=== PATIENT | female | born 1990 | race Caucasian/White ===

== ENCOUNTER 2018-12-01 14:26 | Emergency (ER) | payer OTHER ==
[2018-12-01 15:01] VITALS: BP 133/89
--- NOTE | 2018-12-01 15:17 | UC ---
Throat Pain/Nasal [place] HPI - HPI Summary HPI Summary: 28 yo female presents with sore throat. She tells me that yesterday she noticed a sore throat with swollen tonsils. Today her sore throat is worse, tonsils enlarged, and fever of 101F. She took ibuprofen around 0800 this morning with little relief. She is able to drink, but cannot eat due to pain and tonsil enlargement. She is not drooling. Denies sinus symptoms, cough, rash, abdominal pain, n/v - History of Current Complaint Chief Complaint: UCRespiratory Stated Complaint: SORE THROAT Time Seen by Provider: 12/01/18 15:17 Hx Obtained From: Patient Hx Last Menstrual Period: IUD Onset/Duration: Sudden Onset Severity: Moderate Pain Intensity: 8 Pain Scale Used: 0-10 Numeric - Allergies/Home Medications Allergies/Adverse Reactions: Allergies Allergy/AdvReac Type Severity Reaction Status Date / Time amoxicillin Allergy Hives Verified 12/01/18 17:13 ampicillin Allergy Hives Verified 12/01/18 17:13 bee venom protein (honey bee) Allergy Swelling Verified 12/01/18 17:13 Of Face,Lips,& Throat Penicillins Allergy Swelling Verified 12/01/18 17:13 Of Face,Lips,& Throat soy Allergy Hives Verified 12/01/18 17:13 Home Medications: Home Medications Ibuprofen TAB* [Motrin TAB* 600 MG] 1,200 mg PO Q6H PRN 12/01/18 [History Confirmed 12/01/18] PMH/Surg Hx/FS Hx/Imm Hx - Additional Past Medical History Additional PMH: None - Surgical History Surgical History: None - Family History Known Family History: Positive: None - Social History Lives: With Family Alcohol Use: None Substance Use Type: None Smoking Status (MU): Never Smoked Tobacco Have You Smoked in the Last Year: No - Immunization History Most Recent Influenza Vaccination: 2016 Most Recent Tetanus Shot: 02/14/12 Most Recent Pneumonia Vaccination: never Review of Systems All Other Systems Reviewed And Are Negative: No Constitutional: Positive: Fever Skin: Positive: Negative Eyes: Positive: Negative ENT: Positive: Sore Throat Respiratory: Positive: Negative Cardiovascular: Positive: Negative Gastrointestinal: Positive: Negative Neurovascular: Positive: Negative Neurological: Positive: Negative Psychological: Positive: Negative Physical Exam - Summary Physical Exam Summary: GENERAL: NAD. SKIN: No rashes, sores, lesions, or open wounds. HEENT: Head: AT/NC Eyes: Conjunctiva clear without inflammation or discharge. Ears: Hearing grossly normal. TMs intact, no bulging, erythema, or edema. Nose: Nasal mucosa pink and moist. NTTP maxillary and frontal sinus. Throat: Posterior oropharynx moderate erythema and 4+ tonsillar enlargement. Moderate white/yellow exudates. Uvula midline, but soft palate with mild edema. Moderately muffled voice. NECK: Supple. TTP tonsillar b/l LAD CHEST: CTAB. No r/r/w. No accessory muscle use. Breathing comfortably and in no distress. CV: RRR.. Pulses intact. Cap refill <2seconds NEURO: Alert. PSYCH: Age appropriate behavior. Triage Information Reviewed: Yes Vital Signs: Initial Vital Signs Temp 101.3 F 12/01/18 14:58 Pulse 118 12/01/18 14:58 Resp 16 12/01/18 14:58 BP 133/89 12/01/18 14:58 Pulse Ox 99 12/01/18 14:58 Laboratory Tests 12/01/18 15:21 Group A Strep Rapid Positive A Vital Signs Reviewed: Yes Throat Pain/Nasal Course/Dx - Course Course Of Treatment: POC strep positive. Given her degree of tonsilar edema with possibility of peritonsilar abscess - I recommended pt go to the ED. She was agreeable to this, but declined ambulance transfer. She was given toradol 60mg IM in the clinic for her discomfort and fever. - Differential Dx/Diagnosis Provider Diagnosis: Tonsillitis, Strep throat Discharge ED - Sign-Out/Discharge Documenting (check all that apply): Patient Departure All imaging exams completed and their final reports reviewed: No Studies - Discharge Plan Condition: Stable Disposition: HOME-RECOMMEND TO ED Referrals: No Primary Care Phys,NOPCP [Primary Care Provider] - Additional Instructions: Please go to the ER for further evaluation of your sore throat. - Billing Disposition and Condition Condition: STABLE Disposition: Home-Recommend to ED - Attestation Statements Provider Attestation: Per institutional requirements, I have reviewed the chart, however, I was not consulted specifically or made aware of this patient by the midlevel provider. I did not personally evaluate, interact with , or disposition this patient.
[2018-12-01] MEDS ORDERED: Ketorolac *IM* INJ* 60 MG/2 ML VIAL IM ONE (15:28)
== END 2018-12-01 15:45 | disposition home health service (06) ==
LOC: UCEAST 14:26
DX: J02.0 Streptococcal pharyngitis (principal); J03.90 Acute tonsillitis, unspecified; Z88.0 Allergy status to penicillin; Z91.030 Bee allergy status; Z91.018 Allergy to other foods
CPT/HCPCS: 87651; 99212; G0463; J1885

== ENCOUNTER 2018-12-01 16:34 | Emergency (ER) | payer OTHER ==
[2018-12-01] MEDS ORDERED: Dexamethasone IV* 4 MG/ML 1 ML (4 MG) IV SLOW PU ONE (17:45)
[2018-12-01] MEDS ORDERED: Clindamycin 600 MG/D5W BAG(*) 600 MG/50 ML BAG IV ONE (17:45)
[2018-12-01] MEDS ORDERED: NS 0.9% 1000 ML** 1,000 ML IV ONE (17:45)
[2018-12-01 18:08] LABS: ABS Lymphocytes 1.3 10^3/ul (1.0-4.8); ABS Monocytes 1.1 10^3/ul (0-0.8); ABS Neutrophils 11.8 10^3/ul (1.5-7.7); Hematocrit 38 % (35-47); Hemoglobin 12.8 g/dL (12.0-16.0); Lymphocyte % 9.3 %; Mean Corpuscular HGB Conc 34 g/dL (31-36); Mean Corpuscular Hemoglobin 29 pg (27-31); Mean Corpuscular Volume 86 fL (80-97); Mean Platelet Volume 7.7 fL (7.4-10.4); Nucleated Red Blood Cells % 0.1; Platelet Count 285 10^3/uL (150-450); Red Blood Count 4.44 10^6 /uL (3.70-4.87); Red Cell Distribution Width 13 % (10-15); White Blood Count 14.2 10^3/uL (3.5-10.8)
[2018-12-01 18:26] LABS: Albumin 3.9 g/dL (3.2-5.2); Albumin/Globulin Ratio 1.1 (1-3); BUN/Creatinine Ratio 12.4 (8-20); Calcium 9.2 mg/dL (8.6-10.3); EGFR African American 92.8 (>60); EGFR Non-African American 76.7 (>60); Globulin 3.4 g/dL (2-4); Potassium 3.6 mmol/L (3.5-5.0); Total Bilirubin 0.5 mg/dL (0.2-1.0); Total Protein 7.3 g/dL (6.4-8.9)
[2018-12-01] MEDS ORDERED: Lidocaine 2% VISCOUS* 15 ML UDC PO ONE (18:56)
--- NOTE | 2018-12-01 18:56 | ED ---
Throat Pain/Nasal Congestion - HPI Summary HPI Summary: 28-year-old female presents with sore throat for the past day. She seen at urgent care and had a positive strep was sent and due to the swelling in her throat. She is able to swallow but states that it hurts. She denies any chest pain or shortness breath. Denies any history of peritonsillar abscess but does have a history of recurrent strep. She is still able to swallow pills. She was given Toradol prior to arrival. States pain is symmetric in her throat. She has a slightly muffled voice. - History of Current Complaint Chief Complaint: EDThroatPain Time Seen by Provider: 12/01/18 17:37 - Allergies/Home Medications Allergies/Adverse Reactions: Allergies Allergy/AdvReac Type Severity Reaction Status Date / Time amoxicillin Allergy Hives Verified 12/01/18 17:13 ampicillin Allergy Hives Verified 12/01/18 17:13 bee venom protein (honey bee) Allergy Swelling Verified 12/01/18 17:13 Of Face,Lips,& Throat Penicillins Allergy Swelling Verified 12/01/18 17:13 Of Face,Lips,& Throat soy Allergy Hives Verified 12/01/18 17:13 PMH/Surg Hx/FS Hx/Imm Hx Endocrine/Hematology History: Denies: Hx Diabetes, Hx Thyroid Disease Cardiovascular History: Denies: Hx Hypertension Respiratory History: Denies: Hx Asthma, Hx Chronic Obstructive Pulmonary Disease (COPD) GI History: Denies: Hx Ulcer Psychiatric History: Reports: Hx Depression Infectious Disease History: No Infectious Disease History: Denies: Hx Hepatitis, Hx Human Immunodeficiency Virus (HIV), History Other Infectious Disease, Traveled Outside the [place] in Last 30 Days - Family History Known Family History: Positive: None - Social History Alcohol Use: None Hx Substance Use: No Substance Use Type: Reports: None Hx Tobacco Use: No Smoking Status (MU): Never Smoked Tobacco Have You Smoked in the Last Year: No Review of Systems Negative: Fever Positive: Sore Throat Negative: Chest Pain Negative: Shortness Of Breath All Other Systems Reviewed And Are Negative: Yes Physical Exam Triage Information Reviewed: Yes Vital Signs On Initial Exam: Initial Vitals Temp Pulse Resp BP Pulse Ox 98.3 F 124 14 126/72 96 12/01/18 16:38 12/01/18 16:38 12/01/18 16:38 12/01/18 16:38 12/01/18 16:38 Vital Signs Reviewed: Yes Appearance: Positive: Well-Appearing Skin: Positive: Warm, Dry Head/Face: Positive: Normal Head/Face Inspection Eyes: Positive: Normal, EOMI, DARCI, Conjunctiva Clear ENT: Positive: Pharyngeal erythema, TMs normal, Tonsillar swelling - +4, Tonsillar exudate, Muffled voice, Uvula midline, Other - soft palate symmetric Neck: Positive: Supple, Nontender, No Lymphadenopathy Respiratory/Lung Sounds: Positive: Clear to Auscultation, Breath Sounds Present Cardiovascular: Positive: Normal, RRR Musculoskeletal: Positive: Normal Neurological: Positive: Normal Psychiatric: Positive: Normal Procedures - Sedation Patient Received Moderate/Deep Sedation with Procedure: No Diagnostics - Vital Signs Vital Signs Temp Pulse Resp BP Pulse Ox 12/01/18 16:38 98.3 F 124 14 126/72 96 - Laboratory Lab Results: Lab Results 12/01/18 12/01/18 Range/Units 18:00 18:00 WBC 14.2 H (3.5-10.8) 10^3/uL RBC 4.44 (3.70-4.87) 10^6 /uL Hgb 12.8 (12.0-16.0) g/dL Hct 38 (35-47) % MCV 86 (80-97) fL MCH 29 (27-31) pg MCHC 34 (31-36) g/dL RDW 13 (10-15) % Plt Count 285 (150-450) 10^3/uL MPV 7.7 (7.4-10.4) fL Neut % (Auto) 83.0 % Lymph % (Auto) 9.3 % Clay % (Auto) 7.5 % Eos % (Auto) 0.0 % Baso % (Auto) 0.2 % Absolute Neuts (auto) 11.8 H (1.5-7.7) 10^3/ul Absolute Lymphs (auto) 1.3 (1.0-4.8) 10^3/ul Absolute Monos (auto) 1.1 H (0-0.8) 10^3/ul Absolute Eos (auto) 0.0 (0-0.6) 10^3/ul Absolute Basos (auto) 0.0 (0-0.2) 10^3/ul Absolute Nucleated RBC 0.0 10^3/ul Nucleated RBC % 0.1 Sodium 135 (135-145) mmol/L Potassium 3.6 (3.5-5.0) mmol/L Chloride 103 (101-111) mmol/L Carbon Dioxide 24 (22-32) mmol/L Anion Gap 8 (2-11) mmol/L BUN 11 (6-24) mg/dL Creatinine 0.89 (0.51-0.95) mg/dL Est GFR ( Amer) 92.8 (>60) Est GFR (Non-Af Amer) 76.7 (>60) BUN/Creatinine Ratio 12.4 (8-20) Glucose 99 (70-100) mg/dL Calcium 9.2 (8.6-10.3) mg/dL Total Bilirubin 0.50 (0.2-1.0) mg/dL AST 23 (13-39) U/L ALT 30 (7-52) U/L Alkaline Phosphatase 61 (34-104) U/L Total Protein 7.3 (6.4-8.9) g/dL Albumin 3.9 (3.2-5.2) g/dL Globulin 3.4 (2-4) g/dL Albumin/Globulin Ratio 1.1 (1-3) Monoscreen Negative (Negative) Result Diagrams: 12/01/18 18:00 12/01/18 18:00 Lab Statement: Any lab studies that have been ordered have been reviewed, and results considered in the medical decision making process. EENT Course/Dx - Course Course Of Treatment: 28-year-old female presents with sore throat for the past day. She seen at urgent care and had a positive strep was sent and due to the swelling in her throat. She is able to swallow but states that it hurts. She denies any chest pain or shortness breath. Denies any history of peritonsillar abscess but does have a history of recurrent strep. She is still able to swallow pills. She was given Toradol prior to arrival. States pain is symmetric in her throat. She has a slightly muffled voice. On exam uvula is midline. Soft palate symmetric. Has +4 tonsils. No evidence of a peritonsillar abscess on exam. Gave Decadron and clindamycin and fluids and feeling better. Discussed will place on steroids clindamycin and have follow- up with ENT. warned if any symptoms get worse return. Patient understands agrees the plan. - Differential Diagnoses Differential Diagnoses: Pharyngitis, Tonsilitis, Other - peritonsillar abscess - Diagnoses Provider Diagnoses: Acute bacterial tonsillitis Discharge ED - Sign-Out/Discharge Documenting (check all that apply): Patient Departure - Discharge Plan Condition: Good Disposition: HOME Prescriptions: Clindamycin Oral SOLUTION* [Clindamycin 75 MG/5 ML SOLUTION*] 300 mg PO TID #1 btl Dexamethasone Oral Solution* [Decadron Oral Solution*] 4 mg PO DAILY #1 udc Ibuprofen ADULT LIQ* [Motrin LIQ ADULT*] 600 mg PO QID #1 udc Magic Mouth Was-MONROE/MAAL/LIDO* 5 ml SWISH SPIT QID #100 ml Patient Education Materials: Strep Throat (ED) Referrals: No Primary Care Phys,NOPCP [Primary Care Provider] - Wilber Cardona MD [Medical Doctor] - Additional Instructions: Take clindamycin three times a day for 10 days Take steroid once a day for 5 days Follow up with ENT Can gargle salt water use 5ml magic mouth wash 4times a day take tyenlol or ibuprofen every 6 hours for pain Return to ED if develop fever does not respond to Tylenol or ibuprofen, inability to swallow, or difficulty breathing or any new or worsening symptoms - Billing Disposition and Condition Condition: GOOD Disposition: Home
[2018-12-01 19:19] VITALS: BP 108/70
== END 2018-12-01 19:20 | disposition home or self-care (01) ==
LOC: ED 16:34
DX: J03.80 Acute tonsillitis due to other specified organisms (principal); B96.89 Other specified bacterial agents as the cause of diseases classified elsewhere; Z88.1 Allergy status to other antibiotic agents; Z88.0 Allergy status to penicillin
CPT/HCPCS: 36415; 80053; 85025; 86308; 96361; 96365; 96375; 99283; J1100

== ENCOUNTER 2021-09-10 13:18 | Inpatient (IN) ==
[2021-09-10] MEDS ORDERED: Lactated Ringers 1000 ml BAG 1,000 ML IV ONE (13:56)
[2021-09-10] MEDS ORDERED: Buffered Lidocaine 1% SYRIN 1 ml INTRADERM ONE (13:56)
[2021-09-10] MEDS ORDERED: Dibucaine 1% OINT 28.35 GM TUBE PR PRN (13:58)
[2021-09-10] MEDS ORDERED: Glycerin ADULT 2.4 gm SUPP PR PRN (13:58)
[2021-09-10] MEDS ORDERED: Witch Hazel PAD JAR TOPICAL PRN (13:58)
[2021-09-10] MEDS ORDERED: Lactated Ringers 1000 ml BAG 1,000 ML IV SCH ×2 (14:00)
[2021-09-11 00:48] LABS: Urine Appearance Clear; Urine Color Yellow; Urine Ketones Negative (Negative); Urine Protein Negative (Negative); Urine Specific Gravity 1.025 (1.005-1.030); Urine Urobilinogen 1.0 (Negative) (Negative); Urine pH 6.5 (5.0-9.0)
[2021-09-11 00:49] LABS: Urine Bilirubin Negative (Negative); Urine Glucose Negative (Negative); Urine Nitrite Negative (Negative)
[2021-09-11 00:56] LABS: Urine Benzodiazepine Screen None Detected (None Detect); Urine Cannabinoids Screen None Detected (None Detect); Urine Opiates Screen None Detected (None Detect)
[2021-09-11 00:58] LABS: Urine Bacteria Absent (Absent); Urine Red Blood Cell 3+(>10/hpf) (Absent); Urine Squamous Epithelial Cell Present (Absent); Urine White Blood Cell Trace(0-5/hpf) (Absent)
[2021-09-11 06:21] LABS: ABS Eosinophils 0.1 10^3/ul (0-0.6); ABS Lymphocytes 2.2 10^3/ul (1.0-4.8); ABS Monocytes 0.6 10^3/ul (0-0.8); Eosinophil % 0.8 %; Hematocrit 33 % (35-47); Hemoglobin 11.1 g/dL (12.0-16.0); Lymphocyte % 21.8 %; Mean Corpuscular HGB Conc 34 g/dL (31-36); Mean Corpuscular Hemoglobin 29 pg (27-31); Mean Corpuscular Volume 85 fL (80-97); Mean Platelet Volume 8.5 fL (7.4-10.4); Platelet Count 192 10^3/uL (150-450); Red Blood Count 3.87 10^6 /uL (3.70-4.87); Red Cell Distribution Width 15 % (10-15); White Blood Count 9.9 10^3/uL (3.5-10.8)
[2021-09-11] MEDS ORDERED: Measles, Mumps,Rubella VACC 0.5 ML/VIAL SUBCUT ONE (09:00)
[2021-09-12 09:14] VITALS: BP 119/75
== END 2021-09-12 11:25 | disposition home or self-care (01) | DRG 560 ==
LOC: MCHOBOUT 13:18 → MCHOB 13:19 → UNDODEPREF 09-12 12:33
PROVIDERS: ADMIT Midwife; ATTEND Midwife